=== PATIENT | male | born 1965 | race Caucasian/White ===

== ENCOUNTER 2019-12-22 13:13 | Observation (INO) ==
[2019-12-22] MEDS ORDERED: ASPIRIN PO ONE (13:14)
[2019-12-22] MEDS ORDERED: NITROGLYCERIN SL ONE (13:21)
[2019-12-22 13:53] LABS: BASO# 0.04 X1000 (0.0-0.2); BASO% 0.9 % (0.0-0.8); EOS# 0.06 X1000 (0.0-0.7); EOS% 1.4 % (0.0-10.0); HEMATOCRIT 41.9 % (42.0-52.0); HEMOGLOBIN 13.6 g/dL (14.0-18.0); LYMPH# 0.73 X1000 (1.2-3.4); LYMPH% 16.9 % (20.5-51.1); MCH 29.3 PG (27-31); MCHC 32.5 g/dL (33-37); MCV 90.3 FL (81-99); MONO# 0.27 X1000 (0.11-0.59); MONO% 6.3 % (1.7-9.3); MPV 9.1 FL (7.4-10.4); NEUT# 3.21 X1000 (1.4-6.5); NEUT% 74.5 % (42.2-75.2); PLT 213 X1000 (130-400); RBC 4.64 XMIL (4.7-6.1); RDW 13.9 % (11.5-14.5); WBC 4.31 X1000 (4.8-10.8)
[2019-12-22 14:04] LABS: PROTIME 13.3 Seconds (11.0-16.0); PTT 30.2 Seconds (22.3-41.8)
--- NOTE | 2019-12-22 14:11 | Diag Imaging Result Doc PS360 ---
CHEST-1 VIEW - 12/22/2019 INDICATION: SOB COMPARISON: 07/20/2016 FINDINGS: The lungs are normally expanded and clear. Heart size and mediastinal contours are normal. No pneumothorax or pleural effusion. IMPRESSION: Negative exam. Electronically signed by Jaydon Alva 12/22/2019 2:08 PM
[2019-12-22 14:16] LABS: AGAP 14; ALB/GLOB RATIO 1.6; ALBUMIN 4.4 g/dL (3.5-5.0); ALKALINE PHOSPHATASE 93 U/L (32-122); BUN 27 mg/dL (8-22); CALCIUM 9.4 mg/dL (8.8-10.2); CHLORIDE 104 mmol/L (98-107); COSMO 293; CREATININE 0.9 mg/dL (0.7-1.2); ESTIMATED GFR > 60; GLUCOSE 153 mg/dL (70-104); GOT 23 U/L (10-34); GPT 25 U/L (10-44); SODIUM 143 mmol/L (136-145); TCO2 25 mmol/L (25-35); TOTAL BILIRUBIN 0.25 mg/dL (0.20-1.00); TOTAL PROTEIN 7.1 g/dL (6.3-8.3)
[2019-12-22 14:22] LABS: CK PROFILE 291 U/L (24-204)
--- NOTE | 2019-12-22 14:31 | PROVIDER DOCUMENTATION ---
This chart was entered by Yola Stevens Scribe, acting as scribe for Dom Dorsey MD. HPI-Chest Pain - General Chief Complaint: Chest Pain Stated Complaint: CHEST PAIN X 4 DAYS Time Seen by Provider: 12/22/19 13:19 Source: patient Allergies/Adverse Reactions: Patient Allergies Allergy/AdvReac Type Severity Reaction Status Date / Time No Known Allergies Allergy Verified 04/18/19 06:53 Home Medications: Home Medication List Medication Instructions Recorded Confirmed Last Taken Type Docusate Sodium [Colace] 100 mg PO BID #20 cap 04/18/19 Unknown Rx Hydrocodone/Acetaminophen [[place] 1 ea PO Q6H PRN PRN #15 tab 04/18/19 Unknown Rx 7.5-325 Tablet] - History of Present Illness-CP Nature of Presenting Problem: pt is a 54 yowm c/o int L sided sharp cp for 3 days and associated sob. 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 pt has hx of throat cancer, cardiac blockage. no cough, fever or edema. smoker. 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 Location: reports: other (L sided) Chest Pain Radiation: reports: no radiation Quality of Pain: reports: sharp Severity in ED: moderate Onset/Duration: 3 days ago Timing: intermittent Context/Activities at Onset: reports: none Modifying Factors: improves with: nothing Associated Symptoms: reports: shortness of breath Aspirin Treatment Today: 81 mg x 2, provided at home Review of Systems - Adult - REVIEW OF SYSTEMS - ADULT Constitutional: reports: no symptoms reported. denies: chills, fever, fatique Eyes: reports: no symptoms reported Ears, Nose, Mouth & Throat: reports: no symptoms reported Cardiovascular: reports: see HPI, chest pain. denies: edema, irregular heart rate, palpitations Respiratory: reports: see HPI, shortness of breath. denies: chronic cough, dyspnea on exertion, wheezing Gastrointestinal: reports: no symptoms reported Genitourinary: reports: no symptoms reported Musculoskeletal: reports: no symptoms reported Integumentary: reports: no symptoms reported Neurological: reports: no symptoms reported Psychiatric: reports: no symptoms reported Endocrine: reports: no symptoms reported Hematologic/Lymphatic: reports: no symptoms reported Allergic/Immunologic: reports: no symptoms reported All Other Systems: Reviewed and Negative Past History - Adult - PAST MEDICAL HISTORY-ADULT Review of Records: reports: Nursing Assessment Review, Medications Reviewed, Social history reviewed & non-contributory. Major Childhood Illnesses: reports: denies history Cardiovascular: reports: cardiac disease, HTN Respiratory: reports: COPD Gastrointestinal: reports: other (gallstones) Obstetrical/Gynecological: reports: denies history Genitourinary: reports: denies history Musculoskeletal: reports: arthritis Neurological: reports: denies history Psychiatric: reports: bipolar Endocrine/Immune: reports: Diabetes Other Conditions: reports: other cancer (throat) - PRIOR SURGERIES/PROCEDURES Surgical/Procedure History: reports: cholecystectomy, tonsillectomy, back/neck, other (facial surgery) - PRIOR HOSPITALIZATIONS Prior Hospitalizations: reports: for other non-related - IMMUNIZATION STATUS Childhood Immunizations: See Nurse Assessment Flu Vaccine: See Nurse Assessment - FAMILY HISTORY Family History: reviewed, not pertinent - SOCIAL HISTORY Smoking: cigarettes, greater than 1 pack/day Provider spent 3-5 mins advising pt. on dangers of tobacco.: Discussed manners to quit use, and f/u contacts for add'l counseling. Substance Use: alcohol Alcohol Use Frequency: occasionally Physical Exam-General - PHYSICAL EXAM-ADULT Initial Vital Signs Reviewed: Yes - CONSTITUTIONAL General Appearance: alert, mild distress. negative: lethargic, obtunded, combative - EYES Eyes: PERRL/EOMI - HEAD, EARS, NOSE, MOUTH & THROAT HENMT: normocephalic/atraumatic, moist mucous membranes - NECK Neck: non-tender, full range of motion, supple, normal inspection - RESPIRATORY Respiratory: chest non-tender, lungs clear, normal breath sounds, no pleuratic chest pain, no respiratory distress, no accessory muscle use. negative: respiratory distress, decreased breath sounds, wheezing - CARDIOVASCULAR Cardiovascular: normal peripheral pulses, regular rate, rhythm, no edema, no gallop, no JVD, no murmur. negative: tachycardia, extra beats, friction rub, irregularly irregular - GASTROINTESTINAL (ABDOMEN) Abdominal Exam: normal bowel sounds, non tender, soft - MUSCULOSKELETAL Back Exam: normal inspection Extremity: normal range of motion, non-tender, normal inspection - SKIN Integumentary: normal color, normal turgor, warm/dry. negative: diaphoresis - NEUROLOGIC Neurologic: denture packer II-XII nml as tested, grossly normal, no motor/sensory deficits - PSYCHIATRIC Psych/Mental Status: normal mood/affect, normal thought content, normal thought process, oriented x 3 Progress - PLAN OF CARE/RESULTS Progress/Plan/Lab Results: Vital Signs - 8 hr 12/22/19 13:20 Temperature 98.4 F Pulse Rate 88 Respiratory Rate 18 Blood Pressure 125/82 O2 Sat by Pulse Oximetry 95 Laboratory Results - last 24 hr 12/22/19 12/22/19 12/22/19 13:41 13:41 13:41 WBC RBC Hgb Hct MCV MCH MCHC RDW Std Deviation Plt Count MPV Immature Gran % (Auto) Neut % (Auto) Lymph % (Auto) [place] % (Auto) Eos % (Auto) Baso % (Auto) Immature Gran # (Auto) Neut # (Auto) Lymph # (Auto) [place] # (Auto) Eos # (Auto) Baso # (Auto) PT INR PTT (Actin FS) Sodium 143 Potassium 4.0 Chloride 104 Carbon Dioxide 25 Anion Gap 14 BUN 27 H Creatinine 0.9 Estimated GFR/1.73 m2 > 60 BUN/Creatinine Ratio 30 Glucose 153 H Calculated Osmolality 293 Calcium 9.4 Total Bilirubin 0.25 AST 23 ALT 25 Alkaline Phosphatase 93 Creatine Kinase 291 H Troponin T High Sens 10 Zii-H-Omevxnssiir Pept 34 Total Protein 7.1 Albumin 4.4 Globulin 2.7 Albumin/Globulin Ratio 1.6 12/22/19 12/22/19 13:41 13:41 WBC 4.31 L RBC 4.64 L Hgb 13.6 L Hct 41.9 L MCV 90.3 MCH 29.3 MCHC 32.5 L RDW Std Deviation 13.9 Plt Count 213 MPV 9.1 Immature Gran % (Auto) 0.0 Neut % (Auto) 74.5 Lymph % (Auto) 16.9 L [place] % (Auto) 6.3 Eos % (Auto) 1.4 Baso % (Auto) 0.9 H Immature Gran # (Auto) 0.00 Neut # (Auto) 3.21 Lymph # (Auto) 0.73 L [place] # (Auto) 0.27 Eos # (Auto) 0.06 Baso # (Auto) 0.04 PT 13.3 INR 1.00 PTT (Actin FS) 30.2 Sodium Potassium Chloride Carbon Dioxide Anion Gap BUN Creatinine Estimated GFR/1.73 m2 BUN/Creatinine Ratio Glucose Calculated Osmolality Calcium Total Bilirubin AST ALT Alkaline Phosphatase Creatine Kinase Troponin T High Sens Szi-I-Xmzcdqbwund Pept Total Protein Albumin Globulin Albumin/Globulin Ratio Orders Category Date Time Status Cardiac Monitoring DIRECTED Care 12/22/19 13:14 Active Oxygen Therapy- ED Nursing DIRECTED Care 12/22/19 13:14 Active Saline Loc NOW Care 12/22/19 13:14 Active CHEST-1 VIEW [RAD] Stat Exams 12/22/19 13:14 Completed CBC WITH ELECTRONIC DIFF [HEME] Stat Lab 12/22/19 13:41 Completed CK PROFILE [SP CHEM] Stat Lab 12/22/19 13:41 Results COMPREHENSIVE METABOLIC PANEL [CHEM] Stat Lab 12/22/19 13:41 Results PRO B-NATRIURETIC PEPTIDE Stat Lab 12/22/19 13:41 Completed PROTIME WITH INR [COAG] Stat Lab 12/22/19 13:41 Completed PTT [COAG] Stat Lab 12/22/19 13:41 Completed TROPONIN T HIGH SENSITIVITY Stat Lab 12/22/19 13:41 Completed Aspirin Med 12/22/19 13:14 Discontinued 325 mg PO NOW ONE Nitroglycerin Sl [Nitroglycerin] Med 12/22/19 13:21 Discontinued 0.4 mg SL NOW ONE CP/SOB/Palp >45 yrs of Age Stat Oth 12/22/19 13:14 Ordered EKG [EKG] Stat Ther 12/22/19 13:14 Ordered Result Diagrams: 12/22/19 13:41 12/22/19 13:41 - REASSESSMENT Reassessment #1 Time Reassessed: 14:31 Status: improving (CHEST PAIN RESOLVED. NO DISTRESS. DISCUSSED WITH HOSPITALIST WILL ADMIT) - EKG 1 Time of EKG reading by physician:: 13:32 EKG Read and Signed by:: Dom Dorsey EKG Interpretation (*Must complete 3 of following elements*): Abnormal Rate: 98 Rhythm: NSR [place]: normal QRS: normal [place] Interval: normal ST Wave: non-specific ST changes Comments: septal infarct, age undetermined - XRAY 1 XRAY Study: Chest Impression: Normal, See EMR Report ( CHEST-1 VIEW - 12/22/2019 INDICATION: SOB COMPARISON: 07/20/2016 FINDINGS: The lungs are normally expanded and clear. Heart size and mediastinal contours are normal. No pneumothorax or pleural effusion. IMPRESSION: Negative exam. Electronically signed by Jaydon Alva 12/22/2019 2:08 PM) - CONSULTS/PCP/HOSPITALIST Notification #1 *Consult/PCP/Hospitalist*: Marii Time Discussed: 14:27 Consult Disposition: Admit Departure - Departure Date of Disposition Decision: 12/22/19 Time of Disposition Decision: 14:31 DIAGNOSIS: Chest pain Disposition: ADMITTED INPATIENT 09 Certified Medical Emergency: Emergent Condition: Stable Referrals and Follow-Ups: None,PCP [Primary Care Provider] - - Critical Care Note This patient required my direct & personal management of CC.: No Attestation - Physician/ MAX Attestation Patient care was provided by Advanced Practice Provider:: No The physician spent face to face time with patient:: Yes Advanced Practice Provider documentation review:: Supervising physician onsite and consulted in the evaluation and care of this patient. The physician did have a face to face encounter with the patient. This chart was documented by the indicated scribe, (Yola Stevens Scribe) and accurately reflects the services I performed and decisions made by me, Dom Dorsey MD, as attested by the provider's signature.
[2019-12-22 14:49] LABS: CK INDEX 3.6 (0.0-2.5); CK-MB 10.53 ng/mL (0.0-5.0)
--- NOTE | 2019-12-22 15:21 | ED EKG INTERP ---
This chart was entered by Yola Stevens Scribe, acting as scribe for Dom Dorsey MD. EKG Interpretation - EKG Time of EKG reading by physician:: 15:13 EKG Read and Signed by:: Dom Dorsey EKG Interpretation (*Must complete 3 of following elements*): Abnormal Rate: 67 Rhythm: NSR [place]: normal QRS: normal [place] Interval: normal ST Wave: normal Prior EKG Comparison: changes noted Comments: septal infarct, age undetermined Attestation - Physician/ MAX Attestation The physician spent face to face time with patient:: Yes Advanced Practice Provider documentation review:: Supervising physician onsite and consulted in the evaluation and care of this patient. The physician did have a face to face encounter with the patient. This chart was documented by the indicated scribe, (Yola Stevens Scribe) and accurately reflects the services I performed and decisions made by Willian fisher David E., MD, as attested by the provider's signature.
--- NOTE | 2019-12-22 15:24 | EKG Report ---
Test Performed on : 12/22/2019 3:13:56 PM Test Reason : CP Blood Pressure : / mmHG Vent. Rate : 067 BPM Atrial Rate : 067 BPM P-R Int : 136 ms QRS Dur : 092 ms QT Int : 412 ms P-R-T Axes : 044 017 025 degrees QTc Int : 435 ms Normal sinus rhythm. Septal infarct (cited on or before 22-DEC-2019) Abnormal ECG When compared with ECG of 22-DEC-2019 13:32, (Unconfirmed) No significant change was found Unconfirmed Result
--- NOTE | 2019-12-22 15:27 | EKG Report ---
Test Performed on : 12/22/2019 1:32:22 PM Test Reason : CP Blood Pressure : / mmHG Vent. Rate : 098 BPM Atrial Rate : 098 BPM P-R Int : 140 ms QRS Dur : 094 ms QT Int : 368 ms P-R-T Axes : 054 019 047 degrees QTc Int : 469 ms Normal sinus rhythm. Septal infarct , age undetermined Abnormal ECG When compared with ECG of 01-APR-2019 14:49, Septal infarct is now present Unconfirmed Result
[2019-12-22 16:04] LABS: CK INDEX 3.8 (0.0-2.5); CK-MB 10.25 ng/mL (0.0-5.0)
[2019-12-22] MEDS ORDERED: ZOFRAN IV PRN (16:19)
--- NOTE | 2019-12-22 16:48 | HISTORY AND PHYSICAL ---
HISTORY: Mr. Jalloh is a 54-year-old gentleman who has multiple comorbidities including diabetes mellitus, hypertension, coronary artery disease and recently treated for a throat cancer, presented to the emergency room because of chest pain Mr. Mancuso refers that for the past two to three days he has been having this on and off, exertional type of chest pain which normally gets relieved with rest. Upon presenting to the emergency room, he was evaluated and because of his risk factors it is deemed necessary to admit him to rule out any significant coronary artery disease. OBJECTIVE: Vital Signs: His current vitals, blood pressure 124/93, pulse of 79, respirations 20, temperature 98.4 degrees. General: Mr. Mancuso is a 54-year-old male. He is in bed in no distress. HEENT: Mucosa is pink and moist. Anicteric. Acyanotic. Neck: Supple. Chest: Clear to auscultation. No crepitations. No rhonchi. Cardiovascular: Regular rate and rhythm. Abdomen: Soft. Extremities: No pedal edema. WEB ENGINEER: Patient is awake, alert, oriented. There is mild weakness on the right side. He also said he has paresthesias as a result of a lumbar spine mass that he is being followed up by his oncologist. IMAGING: The patient's chest x-ray this morning reviewed and is negative. EKG shows normal sinus rhythm, no acute ST-segment changes. LABORATORY DATA: Troponins have also been unremarkable. Review of patient's previous data, he did have a left heart catheterization in 2013 that showed non limiting coronary arteriosclerosis. There was about 50% occlusion in the second diagonal of the LAD. The RCA had about a 20% to 30% lesion. ASSESSMENT: 1. Chest pain, to rule out significant coronary arteriosclerosis. So far, troponins have been unremarkable. EKG is unremarkable. The patient has a history of abnormal left heart catheterization, known coronary arteriosclerosis. I think it is reasonable to observe him overnight and do a stress test. Hopefully, get Cardiology to evaluate him and go from there. 2. History of throat cancer. Patient follows up with Dr. Major. 3. 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 4. Diabetes mellitus. In general, we are going to admit Mr. Mancuso to the medical floor on telemetry monitoring. Repeat his troponin three times, repeat his EKG in the morning, get an echo and stress test also in the morning and then get Cardiology to evaluate him depending on the results. cc: Parag Jim MD
--- NOTE | 2019-12-22 17:15 | HISTORY AND PHYSICAL ---
CHIEF COMPLAINT: Chest pain. HISTORY OF PRESENT ILLNESS: This is a 54-year-old gentleman with a prior history of throat cancer, diet-controlled diabetes, hypertension, bipolar disorder, and reported tumor on his back. He presented to the emergency room complaining of chest pain that started 3 or 4 days ago. He stated that prior to that he had been doing a lot of yard work. He was raking, pulling up weeds. He describes this pain as a sharp pain. It is located just to the left of his sternum just above his left nipple area. He states the pain is intermittent. It might last 1 to 2 seconds or might last a few minutes. It spontaneously resolves. He has had no accompanying symptoms. He cannot identify any exacerbating or alleviating symptoms. PAST MEDICAL HISTORY: 1. Reported diabetes mellitus diet controlled. 2. Hypertension. 3. Bipolar disorder. 4. Throat cancer status post XRT. 5. Reported tumor to his spine with no followup. PAST SURGICAL HISTORY: Left eye surgery. SOCIAL HISTORY: He smokes about half a pack to a pack a day. He does drink when his lower right leg hurts from his back tumor. He would not give any further details. He does state that it is not daily. He denies any illicit drug use. ALLERGIES: No known drug allergies. HOME MEDICATIONS: None. REVIEW OF SYSTEMS: Discussed with the patient with pertinent positives stated in the HPI. He denied any syncope or dizziness, any palpitations, any night sweats, recent weight loss or weight gain, any fevers or chills, any shortness of breath, cough, any nausea, vomiting, diarrhea, constipation, black or bloody vomitus or stools, any hematuria, dysuria, frequency, urgency. PHYSICAL EXAMINATION: GENERAL: This is a 54-year-old gentleman who is lying on the stretcher in the emergency room in no distress. VITAL SIGNS: Blood pressure is 113/77 with a heart rate of 68, respirations are 16, temperature is 98.4 degrees oral with O2 saturations that are 96 to 98 percent on 2 L nasal cannula. He was 95 to 96 percent on room air. EYES: Pupils are equal, round, react to light. EOMs are intact. Sclerae anicteric. HEENT: Head is normocephalic, atraumatic. Mucous membranes are moist. NECK: Supple with trachea midline. CARDIOVASCULAR: Regular rate and rhythm. S1 and S2 are appreciated. No murmur. He has no lower extremity edema. PULMONARY: Breath sounds are clear. No increased work of breathing noted. Chest rises and falls symmetrically with respiration. Chest wall is nontender to palpation. GASTROINTESTINAL: Abdomen is soft, nontender, nondistended with bowel sounds in all 4 quadrants. GENITOURINARY: He has no CVA or suprapubic tenderness. NEUROLOGIC: He is alert and oriented x3. SKIN: Warm and dry. LABS: WBC is 4.3, with hemoglobin 13.6, hematocrit 41.9, and platelets of 213,000. INR is 1. Sodium 143, potassium 4, BUN 27, creatinine 0.9 with a glucose of 153. Troponin T is 10 at 1:41, at 3 o'clock it is 8. CPK 291 to 67. CK-MB 10.53 and 10.25. Chest x-ray revealed negative exam. Lungs are normally expanded and clear. Heart size and mediastinal contours are normal. No pneumothorax or pleural effusion. EKG at 1:30 revealed sinus rhythm at a rate of 98. EKG at 2:54 revealed sinus rhythm at a rate of 67. ASSESSMENT: This is a 54-year-old gentleman with: 1. Chest pain. 2. Continued nicotine abuse and use. 3. History of throat cancer followed by Dr. Major and Radha Arguelles. 4. Reported spine tumor with no followup after diagnosis status post 2 years ago. 5. Hypertension on no home medications. 6. Diabetes mellitus diet controlled after weight loss. PLAN: 1. The patient will be admitted to the hospital. 2. Placed on telemetry. 3. Give supplemental oxygen as needed number. 4. Trend troponin and cardiac profile. 5. Check a CBC, CMP, and lipid profile in the morning. 6. Check EKG in the morning. 7. Place on healthy heart healthy diet. 8. He will be NPO after midnight. Cardiology will be consulted. He will stay NPO until evaluated by cardiology. 9. History of diabetes mellitus diet controlled. We will check pattern blood glucose and will do q.12 hours glucose. 10. Plan was discussed with Dr. Jim. Further treatments pending hospital course. Dictated by SEJAL Ayers for Parag Jim MD cc: SEJAL Ayers MD
[2019-12-22 19:23] LABS: CK INDEX 3.7 (0.0-2.5); CK-MB 8.59 ng/mL (0.0-5.0)
[2019-12-23 07:08] LABS: BASO# 0.02 X1000 (0.0-0.2); BASO% 0.3 % (0.0-0.8); EOS# 0.16 X1000 (0.0-0.7); EOS% 2.4 % (0.0-10.0); HEMATOCRIT 44.6 % (42.0-52.0); HEMOGLOBIN 14.4 g/dL (14.0-18.0); LYMPH# 1.02 X1000 (1.2-3.4); LYMPH% 15.2 % (20.5-51.1); MCH 29.6 PG (27-31); MCHC 32.3 g/dL (33-37); MCV 91.8 FL (81-99); MONO# 0.39 X1000 (0.11-0.59); MONO% 5.8 % (1.7-9.3); MPV 9.2 FL (7.4-10.4); NEUT% 76.3 % (42.2-75.2); PLT 196 X1000 (130-400); RBC 4.86 XMIL (4.7-6.1); RDW 14.3 % (11.5-14.5); WBC 6.69 X1000 (4.8-10.8)
[2019-12-23] MEDS: HUMULIN R SUBQ SCH ×2 (07:09→16:00)
--- NOTE | 2019-12-23 07:29 | EKG Report ---
Test Performed on : 12/23/2019 07:16:08 AM Test Reason : chest pain Blood Pressure : / mmHG Vent. Rate : 069 BPM Atrial Rate : 069 BPM P-R Int : 136 ms QRS Dur : 096 ms QT Int : 420 ms P-R-T Axes : 055 034 055 degrees QTc Int : 450 ms Normal sinus rhythm. Septal infarct (cited on or before 22-DEC-2019) Abnormal ECG When compared with ECG of 22-DEC-2019 15:13, (Unconfirmed) No significant change was found Confirmed by Enrike WELCH, Jeremy Nina ([id number]) on 12/24/2019 9:40:56 AM
[2019-12-23 07:30] LABS: CHOLESTEROL 158 mg/dL (0-200); HDL 45 mg/dL (35-55); LDL 96 mg/dL; TRIGLYCERIDES 83 mg/dL (39-160); VLDL 17 mg/dL
[2019-12-23 07:37] LABS: AGAP 10; ALB/GLOB RATIO 1.6; ALBUMIN 4.1 g/dL (3.5-5.0); ALKALINE PHOSPHATASE 92 U/L (32-122); BUN 23 mg/dL (8-22); CALCIUM 9.1 mg/dL (8.8-10.2); CHLORIDE 102 mmol/L (98-107); COSMO 283; CREATININE 0.7 mg/dL (0.7-1.2); ESTIMATED GFR > 60; GLUCOSE 102 mg/dL (70-104); GOT 19 U/L (10-34); GPT 23 U/L (10-44); POTASSIUM 4.1 mmol/L (3.5-5.1); SODIUM 140 mmol/L (136-145); TCO2 28 mmol/L (25-35); TOTAL BILIRUBIN 0.29 mg/dL (0.20-1.00); TOTAL PROTEIN 6.6 g/dL (6.3-8.3)
[2019-12-23] MEDS ORDERED: PRILOSEC PO SCH (09:00)
--- NOTE | 2019-12-23 11:06 | CONSULTATION ---
DATE OF CONSULTATION: 12/23/2019 IMPRESSION: 1. Chest pain, very atypical for myocardial ischemia and more likely noncardiac. Serial troponins normal. 2. Chronic ongoing cigarette use. 3. Hypertension. 4. Bipolar disorder. 5. History of throat cancer, treated with radiation therapy. RECOMMENDATIONS: 1. Agree with plans for stress testing and noninvasive cardiac evaluation. 2. Smoking cessation strongly advised. HISTORY OF PRESENT ILLNESS: This 54-year-old white male with past history of chronic cigarette use, hypertension, bipolar disorder, and throat cancer was admitted to the emergency room for evaluation of chest pain. He reports a 3- to 4-day history of episodic sharp chest pain that is generally fleeting and brief, but would recur. Discomfort is described as being left parasternal and right parasternal. He can identify no precipitating or relieving factors. Discomfort is not exertional. He has not noted it to be positional or pleuritic. He has not had any cough or fever. PAST MEDICAL AND SURGICAL HISTORY: 1. Hypertension. 2. Bipolar disorder. 3. Throat cancer, treated with radiation therapy. 4. Reported type 2 diabetes mellitus, diet controlled. 5. Status post unspecified left eye surgery. ALLERGIES: No known drug allergies. MEDICATIONS PRIOR TO ADMISSION: None. SOCIAL HISTORY: He continues to smoke 1 pack of cigarettes per day. He is rather vague as to his alcohol intake. He has been working mowing yards. FAMILY HISTORY: Noncontributory. REVIEW OF SYSTEMS: Pulmonary: Noncontributory beyond History of Present Illness. Gastrointestinal: Noncontributory beyond History of Present Illness. Constitutional: Noncontributory beyond History of Present Illness. Other Systems: The remainder of review of systems negative/noncontributory beyond History of Present Illness with 14 total systems reviewed. PHYSICAL EXAMINATION: General: This is a middle-aged white male in no distress. Vital Signs: Blood pressure 116/67, heart rate 70, oxygen saturation 97% on room air. HEENT: Extraocular movements intact. Mucous membranes moist. Neck: Supple without jugular venous distention. No carotid bruits. Chest: Clear to auscultation bilaterally. Cardiac: Exam reveals a regular rate and rhythm without appreciable murmur, rub, or gallop. Abdomen: Soft. Bowel sounds are normal. Extremities: Without edema. Neurologic: Exam reveals him to be alert and fully oriented. Speech is fluent. Moves all 4 extremities equally well. Skin: Warm and dry. Psychiatric: Reveals mood to be appropriate. PERTINENT DATA: A 12-lead EKG demonstrates normal sinus rhythm and is within normal limits. LABORATORY DATA: Includes a white blood cell count of 6.7, hematocrit 44.6, hemoglobin 14.4, platelet count 196,000. Sodium 140, potassium 4.1, chloride 102, carbon dioxide 28, BUN 23, creatinine 0.7, glucose 102. Initial troponin T high sensitivity 10 with followup troponin T high sensitivities of 8 and 10. cc: Nash Desir MD
[2019-12-23] MEDS ORDERED: LEXISCAN ONE (11:59)
--- NOTE | 2019-12-23 13:35 | Diag Imaging Result Document ---
PROCEDURE NAME: MYOCARDIAL PERF SCAN, STR/REST - 12/23/2019 PROCEDURE PERFORMED: Lexiscan Cardiolite stress test. DESCRIPTION OF PROCEDURE: Lexiscan was infused per standard protocol. There was no chest pain. Stress electrocardiogram was negative for ischemia. Following Lexiscan infusion, Cardiolite was injected. Normal response to Lexiscan infusion. There were 10.6 mCi of Cardiolite injected for the rest phase and 32.8 mCi of Cardiolite injected for the stress phase. Images revealed significant diaphragmatic and chest wall attenuation. In addition, there is GI interference. Left ventricular cavity was mildly dilated. There was a fixed defect noted in the mid and base inferior wall. In addition, there is a fixed defect noted in the inferoapical wall. There is no definite evidence of ischemia. Left ventricular ejection fraction by gated SPECT was 49%. There was significant GI interference as well, especially on the resting myocardial perfusion scans. CONCLUSIONS: 1. No chest pain. 2. Negative Lexiscan stress electrocardiogram. 3. Myocardial perfusion images revealed no evidence of ischemia. 4. Left ventricle is dilated. There is significant diaphragmatic and GI interference in addition to chest wall attenuation. There is a fixed defect noted in the mid and base inferior wall, in addition to a fixed defect in the left ventricular apex. This could represent scar versus attenuation defect as there is significant attenuation noted. 5. Left ventricular ejection fraction by gated SPECT was 49%. cc: MD Parag Gamez MD
[2019-12-23 15:13] VITALS: BP 126/80
[2019-12-23] MEDS ORDERED: PNEUMOVAX 23 IM ONE (16:02)
--- NOTE | 2019-12-23 16:37 | DISCHARGE SUMMARY ---
ADMISSION DATE: 12/22/2019 DISCHARGE DATE: I have seen and examined Mr. Mancuso. DISPOSITION: Home. FOLLOWUP: Dr. Desir. CONSULTATION: Cardiology was consulted, patient was seen by Dr. Desir. INVASIVE PROCEDURES: None. IMAGING STUDIES OF SIGNIFICANT: A stress test of the heart was done which showed left ventricle is dilated. There was fixed defect but no evidence of ischemia on perfusion imaging. Patient's ejection fraction was 49% by SPECT. ADMISSION DIAGNOSIS: 1. Chest pain. 2. History of throat cancer. 3. Hypertension. DIAGNOSIS AT THE TIME OF DISCHARGE: 1. Atypical chest pain. 2. Ischemic cardiomyopathy with ejection fraction of 49% on stress test. 3. History of throat cancer. 4. Lumbar spine mass causing right lower extremity radiculopathy. 5. Diabetes mellitus controlled on diet. DISCHARGE MEDICATIONS: 1. Aspirin 81 mg p.o. daily. 2. Omeprazole 40 mg p.o. daily. 3. Pravastatin 40 mg p.o. at bedtime. PRESENTING COMPLAINT: Chest pain. HISTORY OF PRESENTING COMPLAINT: Mr. Mancuso is a 54-year-old male who has history of diabetes, hypertension controlled on diet, also bipolar disorder, throat cancer, came to the emergency room because of chest discomfort. Because of his risk factors he was admitted for coronary artery disease rule out. HOSPITAL COURSE: Mr. Mancuso was admitted to the medical floor. He was evaluated by Cardiology. A stress test was done which came back negative for ischemic changes on perfusion studies. He did have some evidence of scar tissues on the stress test but nothing to intervene. His chest pain significantly improved during the hospital course. His troponins were trended 3 times were negative, EKGs did not show any acute changes. We think he is stable enough to be discharged to follow up with Cardiology on outpatient base. Mr. Mancuso is also a heavy smoker. We have advised him on tobacco cessation. All the discharge instructions have been discussed with him. He voiced understanding. TIME SPENT: 38 minutes. cc: Nash Desir MD
== END 2019-12-23 16:45 | disposition home or self-care (01) ==
LOC: 3N 13:13 → ED 13:13
PROVIDERS: ATTEND Internal Medicine